=== PATIENT | female | born 1985 | race Caucasian/White ===

== ENCOUNTER 2016-05-27 05:58 | Day surgery (SDC) | payer OTHER ==
[~2016-05-27 05:58] MED LIST: BENADRYL A12.5 MG/2 PO; BIOTIN10000 MC1 PO; CALCIUM CARBON500 M2 PO; CETIRIZINE HCL10 M2 PO; COLACE100 M1 PO; ECHINACEA500 M1 PO; ESTRADIOL; ESTRADIOL1 EA10 TD; FISH OIL 1,2001 EAC7 PO; HYDROCODON-ACE1 EA16 PO; L-LYSINE500 M3 PO; VITAMIN C500 M3 PO; VITAMIN D35000 UNI2 PO; ZINC50 M2 PO; ZOFRAN4 M2 PO
== END 2016-05-27 12:10 ==
LOC: ENDOS 05:58 → SHSB 06:03 → ENDOS 08:00
PROC: 0DBA8ZZ Excision of Jejunum, Via Natural or Artificial Opening Endoscopic (ICD-10-PCS; principal; 2016-05-27)
DX: K63.89 Other specified diseases of intestine (principal); Q85.8 Other phakomatoses, not elsewhere classified; Z90.49 Acquired absence of other specified parts of digestive tract; J45.909 Unspecified asthma, uncomplicated; Z79.899 Other long term (current) drug therapy; Z88.1 Allergy status to other antibiotic agents; Z90.710 Acquired absence of both cervix and uterus; Z90.89 Acquired absence of other organs; Z98.890 Other specified postprocedural states